=== PATIENT | male | born 1975 | race Hispanic/Latino ===

== ENCOUNTER 2018-09-11 10:11 | Inpatient (IN) | payer MEDICAID, OTHER ==
--- NOTE | 2018-09-11 10:19 | ED PDOC ---
Arrival/HPI - General Time Seen by Provider: 09/11/18 10:12 Historian: Patient - History of Present Illness Narrative History of Present Illness (Text): 09/11/18 10:16 42 y/o male, psy transfer from [facility] to [facility], alonso colon for admission to the psy floor. Pt. is here with no medical complaints. Pt. admits suicidal ideation with plan and there fore he needs psychiatric admission. Pt. has no nausea/vomiting/diarrhea/chest pain or shortness of breath, no other medical or psychological complaints. Past Medical History - Provider Review Nursing Documentation Reviewed: Yes Family/Social History - Physician Review Nursing Documentation Reviewed: Yes Family/Social History: Unknown Family HX Allergies/Home Meds Allergies/Adverse Reactions: Allergies No Known Allergies Allergy (Verified 09/11/18 10:20) Home Medications: Home Meds Medication Instructions Recorded Confirmed No Known Home Med 09/11/18 09/11/18 Review of Systems - Review of Systems Constitutional: absent: Fatigue, Fevers Eyes: absent: Vision Changes ENT: absent: Hearing Changes, Rhinorrhea Respiratory: absent: SOB, Cough Cardiovascular: absent: Chest Pain Gastrointestinal: absent: Abdominal Pain, Diarrhea, Nausea, Vomiting Neurological: absent: Headache, Dizziness Psychiatric: Suicidal Ideation. absent: Anxiety, Depression Physical Exam - Systems Exam Head: Present: Atraumatic, Normocephalic Pupils: Present: PERRL Extroacular Muscles: Present: EOMI Conjunctiva: Present: Normal Mouth: Present: Moist Mucous Membranes Neck: Present: Normal Range of Motion Respiratory/Chest: Present: Clear to Auscultation, Good Air Exchange. No: Respiratory Distress, Accessory Muscle Use Cardiovascular: Present: Regular Rate and Rhythm, Normal S1, S2. No: Murmurs Abdomen: No: Tenderness, Distention, Peritoneal Signs Back: Present: Normal Inspection Upper Extremity: Present: Normal Inspection. No: Cyanosis, Edema Lower Extremity: Present: Normal Inspection. No: Edema Neurological: Present: GCS=15, CN II-XII Intact, Speech Normal Skin: Present: Warm, Dry, Normal Color. No: Rashes Psychiatric: Present: Alert, Oriented x 3, Normal Insight, Normal Concentration, Suicidal Ideation. No: Homicidal Ideation, Intoxicated, Lethargic Medical Decision Making ED Course and Treatment: 09/11/18 10:17 -Pt. accepted by the ER doctor Dr. Flores from the previous shift and admission psychiatrist is Dr. Dona Pratt which she is aware. -Pt. is medically clear and stable for admission for psy at this point, please consult with medicine attending if medical consult is needed. 09/11/18 11:05 -Pt. has elevated BP, asymptomatic, will admit to psy, no emergent treatment, he would need low salt diet and weight loss as initial treatment. - PA / LEAD GAME DESIGNER / Resident Statement MD/DO has reviewed & agrees with the documentation as recorded. Disposition/Present on Arrival - Present on Arrival Any Indicators Present on Arrival: No History of DVT/PE: No History of Uncontrolled Diabetes: No Urinary Catheter: No History of Decub. Ulcer: No - Disposition Have Diagnosis and Disposition been Completed?: Yes Diagnosis: Suicidal ideation Disposition: HOSPITALIZED Disposition Time: 10:19 Patient Plan: Admission Condition: STABLE
[2018-09-11 11:10] VITALS: O2SAT 99
--- NOTE | 2018-09-11 14:07 | CP.PCM.CON ---
<Yann Salazar - Last Filed: 09/11/18 19:38> History of Present Illness - History of Present Illness History of Present Illness: Yann Salazar DO PGY1 - Medicine Consult Note Patient is a 42M w/ PMH EtOH abuse presenting from [facility] after suicidal ideation and EtOH intoxication. Patient was admitted to [facility] on 09/09 and transferred to [facility] on 09/11 for inpatient psych admission. Medicine was consulted for elevated blood pressure readings. Upon evaluation of the patient, he denies any prior medical history of HTN AMI or CVA. Denies any chest pain, blurry vision, sob, palpitations at this time. Has never been told he has had any high blood pressure in the past. He did report his last drink was on 09/09 and is mildly anxious at this time; denies any seizure or alcohol withdrawal in the past. Social: Drinks 2-3 [employer] every other day, 21 pack year smoker, remote hx cocaine use, no IVDA, Marijuana use 6mo ago PMH: Denies PSH: Denies ALL: NKDA HomeRx: Denies Fam Hx: Mom - alive healthy, father unknown Review of Systems - Review of Systems All systems: reviewed and no additional remarkable complaints except Review of Systems: as per HPI Past Patient History - Past Social History Smoking Status: Light Smoker < 10 Cigarettes Daily - CARDIAC Hx Cardiac Disorders: No - PULMONARY Hx Respiratory Disorders: No - NEUROLOGICAL Hx Neurological Disorder: No - HEENT Hx HEENT Problems: No - RENAL Hx Chronic Kidney Disease: No - ENDOCRINE/METABOLIC Hx Endocrine Disorders: No - HEMATOLOGICAL/ONCOLOGICAL Hx Blood Disorders: No - INTEGUMENTARY Hx Dermatological Problems: No - GASTROINTESTINAL Hx Gastrointestinal Disorders: No - GENITOURINARY/GYNECOLOGICAL Hx Genitourinary Disorders: No - PSYCHIATRIC Hx Anxiety: Yes Hx Substance Use: No - SURGICAL HISTORY Hx Surgeries: No Meds Allergies/Adverse Reactions: Allergies Allergy/AdvReac Type Severity Reaction Status Date / Time No Known Allergies Allergy Verified 09/11/18 18:03 - Medications Medications: Current Medications Lorazepam (Ativan) 2 mg PO Q6H PRN; Protocol PRN Reason: anxiety/agitation Lorazepam (Ativan) 2 mg IM Q6 PRN; Protocol PRN Reason: Agitation Mirtazapine (Remeron) 15 mg PO HS WILFRIDO Nicotine (Nicoderm Cq) 1 patch TD DAILY WILFRIDO Last Admin: 09/11/18 13:54 Dose: 1 patch Ziprasidone (Geodon Cap) 20 mg PO Q6H PRN; Protocol PRN Reason: psychosis/agitation Ziprasidone (Geodon Inj) 20 mg IM Q6H PRN; Protocol PRN Reason: severe agitaiton/psychosis Physical Exam - Constitutional Appears: Well, Non-toxic, No Acute Distress - Head Exam Head Exam: ATRAUMATIC, NORMOCEPHALIC - Eye Exam Eye Exam: EOMI, Normal appearance, PERRL - ENT Exam ENT Exam: Mucous Membranes Moist, Normal Exam - Respiratory Exam Respiratory Exam: Clear to Auscultation Bilateral, NORMAL BREATHING PATTERN - Cardiovascular Exam Cardiovascular Exam: RRR. absent: Systolic Murmur - GI/Abdominal Exam GI & Abdominal Exam: Soft. absent: Tenderness - Neurological Exam Neurological exam: Alert, Oriented x3 Additional comments: No tremor - Psychiatric Exam Psychiatric exam: Anxious - Skin Skin Exam: Dry, Intact, Normal Color, Warm Results - Vital Signs Recent Vital Signs: Last Vital Signs Temp 98.6 F 09/11/18 11:47 Pulse 82 09/11/18 12:45 Resp 17 09/11/18 11:47 BP 155/98 H 09/11/18 12:45 Pulse Ox 99 09/11/18 11:04 Assessment & Plan - Assessment and Plan (Free Text) Assessment: 42M PMH EtOH abuse admitted to inpatient psych 2/2 suicidal ideation; medicine service consulted for evaluation of elevated blood pressure Plan: Elevated Blood Pressure: Patient noted to be HTN 160s/100s upon presentation to ED; Reviewing his chart at outside facility prior to arrival patient BP 113-127/90s At time of evaluation his pressure was 137/88 Asymptomatic at time of presentation; EKG at outside facility is NSR; Lab work reviewed; patient had EtOH level >200 on 09/09 Given his BP fluctuance; it is likely that elevated readings are 2/2 Anxiety due to EtOH withdrawal He demonstrates no other signs of withdrawal other than mild anxiety at this time. He will need outpatient monitoring of his pressure to establish a formal diagnosis of hypertension It is recommended however he maintain a low fat/ low salt diet; and partake in exercise program given his BMI of 30 No further inpatient medical management or workup required at this time Thank you for this interesting consult, will sign off at this time, please reconsult as necessary Patient was seen examined and discussed w/ attending Dr. Leslie Salazar DO PGY1 Internal Medicine [employer] Sales Consultant - Date & Time Date: 09/11/18 Time: 19:46 <Shorty Nelson - Last Filed: 09/15/18 12:56> Meds - Medications Medications: Current Medications Acetaminophen (Tylenol 325mg Tab) 650 mg PO Q4 PRN PRN Reason: Pain, moderate (4-7) Al Hydrox/Mg Hydrox/Simethicone (Maalox Plus 30 Ml) 30 ml PO DAILY PRN PRN Reason: Upset Stomach Last Admin: 09/14/18 14:08 Dose: 30 ml Atorvastatin Calcium (Lipitor) 10 mg PO DIN WILFRIDO Last Admin: 09/14/18 17:39 Dose: 10 mg Gabapentin (Neurontin) 300 mg PO TID WILFRIDO; Protocol Last Admin: 09/15/18 08:10 Dose: 300 mg Lorazepam (Ativan) 2 mg PO Q6H PRN; Protocol PRN Reason: anxiety/agitation Last Admin: 09/15/18 08:10 Dose: 2 mg Lorazepam (Ativan) 2 mg IM Q6 PRN; Protocol PRN Reason: Agitation Magnesium Hydroxide (Milk Of Magnesia) 30 ml PO DAILY PRN PRN Reason: Constipation Mirtazapine (Remeron) 30 mg PO HS [facility] Last Admin: 09/14/18 21:09 Dose: 30 mg Nicotine (Nicoderm Cq) 1 patch TD DAILY WILFRIDO Last Admin: 09/15/18 08:10 Dose: 1 patch Pantoprazole Sodium (Protonix Ec Tab) 40 mg PO 0600 WILFRIDO Last Admin: 09/14/18 17:39 Dose: 40 mg Quetiapine Fumarate (Seroquel) 12.5 mg PO BID WILFRIDO; Protocol Quetiapine Fumarate (Seroquel) 25 mg PO HS WILFRIDO; Protocol Ziprasidone (Geodon Cap) 20 mg PO Q6H PRN; Protocol PRN Reason: psychosis/agitation Last Admin: 09/14/18 22:20 Dose: 20 mg Ziprasidone (Geodon Inj) 20 mg IM Q6H PRN; Protocol PRN Reason: severe agitaiton/psychosis Results - Vital Signs Recent Vital Signs: Last Vital Signs Temp 97.8 F 09/14/18 06:56 Pulse 74 09/15/18 07:00 Resp 18 09/15/18 07:00 BP 113/73 09/15/18 07:00 Pulse Ox 99 09/11/18 11:04 Attending/Attestation - Attestation I have personally seen and examined this patient.: Yes I have fully participated in the care of the patient.: Yes I have reviewed all pertinent clinical information: Yes Notes (Text): 09/15/18 12:53 Attending note; Patient seen and examined with resident in psychiatric floor. Patient is alert and awake. Patient denies any past medical history. Currently not on any medications. Admitted to psychiatric floor for suicidal ideation. Denies any fevers, chills. Denies any abdominal pain, nausea, vomiting. Denies any shortness of breath or urinary, bowel complaints. 1. Mildly elevated blood pressure; secondary to anxiety and alcohol withdrawal . Continue Ativan. No need for antihypertensive therapy now. 2. Chronic alcohol abuse; complete alcohol cessation is strongly advised. Information about AA meetings and rehab given. 3. Active smoking; smoking cessation is strongly advised. Currently on NicoDerm patch. 4. GI prophylaxis with Protonix. Patient is ambulating without any difficulty 5. Anxiety depression; continue medication per psychiatrist. Advised to follow-up with PMD of choice upon discharge. Patient agrees with the above recommendation. 09/15/18 12:56
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
--- NOTE | 2018-09-11 15:58 | PCM.BM ---
<Miles Pimentel - Last Filed: 09/11/18 15:55> Treatment Plan Problems - Problems identified on initial assessmt Hopelessness/Helplessness Date Initiated: 09/11/18 Time Initiated: 12:00 Assessment reference: NA Status: Active Priority: 1 Feelings of Worthlessness Date Initiated: 09/11/18 Time Initiated: 12:00 Assessment reference: NA Status: Active Priority: 2 Anxiety Related to Substance Abuse Date Initiated: 09/11/18 Time Initiated: 12:00 Assessment reference: NA Status: Active Priority: 3 Knowledge Deficit: Alcohol Use Date Initiated: 09/11/18 Time Initiated: 12:00 Assessment reference: NA Status: Active Priority: 4 Ineffective Coping Date Initiated: 09/11/18 Time Initiated: 12:00 Assessment reference: NA Status: Active Priority: 5 Treatment assets and liabiliti Patient Assests: cooperative, ADL independent, negotiates basic needs, cognitively intact, good interpersonal skills Patient Liabilities: live alone, financial problems, relationship conflicts, substance abuse - Milieu Protocol Maintain good personal hygiene: daily Encourage regular showers, daily Remind patient to perform daily oral care, every shift Assist patient to perform ADL's Maintain personal safety: every shift Educate patient to report safety concerns to staff, every shift Monitor environment for contraband/sharps Medication safety: Monitor for expected outcome, potential side effects: every shift, Assess barriers to learning: every shift, Assess readiness for medication education: every shift Milieu Narrative: Milieu/structure/supportive therapy SW consultation for discharge plan and social issues Med management Neurontin 300 mg 3 times a day for mood stabilization Remeron 15 mg at the nighttime for depression and insomnia As needed medication Medical consult for hypertension No need for one-to-one observation, patient contracted for safety Family involvement Follow up on labs Will monitor closely Pt was educated about risk/benefits and alternatives of medications, coping strategies (safety plan, suicide prevention), relapse prevention, importance of follow up with psychiatrist and therapist, stay away from drugs/alcohol/smoking Family Contact Family involvement: Family/SO is involved Family contact: Patient agrees to contact Discharge/Continuing Care - Education Needs Education Needs: Patient Medication, Patient Diagnosis/Disease Process, Patient Coping Skills, Patient Anger Management skills, Patient Placement options, Patient Community resources, Patient Activities of Daily Living, Patient Pain, Patient Nutrition, Patient Uses of Medical Equipment, Patient Health Practices/Safety, Patient Personal Hygiene/Grooming, Patient Aftercare Safety Plan - Discharge Discharge Criteria: Tolerates medication w/o severe side effects - Treatment Team Participation Patient/Family/SO Statement: Milieu/structure/supportive therapy SW consultation for discharge plan and social issues Med management Neurontin 300 mg 3 times a day for mood stabilization Remeron 15 mg at the nighttime for depression and insomnia As needed medication Medical consult for hypertension No need for one-to-one observation, patient contracted for safety Family involvement Follow up on labs Will monitor closely Pt was educated about risk/benefits and alternatives of medications, coping strategies (safety plan, suicide prevention), relapse prevention, importance of follow up with psychiatrist and therapist, stay away from drugs/alcohol/smoking <Neida Reaves - Last Filed: 09/13/18 08:38> Family Contact Family contact: Patient agrees to contact
[2018-09-11] MEDS ORDERED: Magnesium Hydroxide Susp 30 ml UD PO PRN (18:36)
[2018-09-11] MEDS: Alum-Mag Hydrox-Simethicone Susp (30 mL) PO PRN (18:45)
[2018-09-11 19:09] VITALS: BMI 30.1
--- NOTE | 2018-09-11 19:36 | CP.PCM.PN ---
Subjective - Date & Time of Evaluation Date of Evaluation: 09/11/18 Time of Evaluation: 13:00 - Subjective Subjective: Yann Salazar PGY1 - Medicine Consult Note Patient is a 42M w/ PMH EtOH abuse presenting from [facility] after suicidal ideation and EtOH intoxication. Patient was admitted to [facility] on 09/09 and transferred to [facility] on 09/11 for inpatient psych admission. Medicine was consulted for elevated blood pressure readings. Upon evaluation of the patient, he denies any prior medical history of HTN AMI or CVA. Denies any chest pain, blurry vision, sob, palpitations at this time. Has never been told he has had any high blood pressure in the past. He did report his last drink was on 09/09 and is mildly anxious at this time; denies any seizure or alcohol withdrawal in the past. Social: Drinks 2-3 4Lock[employer] every other day, 21 pack year smoker, remote hx cocaine use, no IVDA, Marijuana use 6mo ago PMH: Denies PSH: Denies ALL: NKDA HomeRx: Denies Fam Hx: Mom - alive healthy, father unknown Objective - Vital Signs/Intake and Output Vital Signs (last 24 hours): Temp Pulse Resp BP Pulse Ox 98.6 F 74 17 124/84 99 09/11/18 11:47 09/11/18 16:19 09/11/18 11:47 09/11/18 16:19 09/11/18 11:04 - Medications Medications: Current Medications Acetaminophen (Tylenol 325mg Tab) 650 mg PO Q4 PRN PRN Reason: Pain, moderate (4-7) Al Hydrox/Mg Hydrox/Simethicone (Maalox Plus 30 Ml) 30 ml PO DAILY PRN PRN Reason: Upset Stomach Last Admin: 09/11/18 18:45 Dose: 30 ml Gabapentin (Neurontin) 300 mg PO TID WILFRIDO; Protocol Last Admin: 09/11/18 17:25 Dose: 300 mg Lorazepam (Ativan) 2 mg PO Q6H PRN; Protocol PRN Reason: anxiety/agitation Last Admin: 09/11/18 17:25 Dose: 2 mg Lorazepam (Ativan) 2 mg IM Q6 PRN; Protocol PRN Reason: Agitation Magnesium Hydroxide (Milk Of Magnesia) 30 ml PO DAILY PRN PRN Reason: Constipation Mirtazapine (Remeron) 15 mg PO HS WILFRIDO Nicotine (Nicoderm Cq) 1 patch TD DAILY WILFRIDO Last Admin: 09/11/18 13:54 Dose: 1 patch Ziprasidone (Geodon Cap) 20 mg PO Q6H PRN; Protocol PRN Reason: psychosis/agitation Ziprasidone (Geodon Inj) 20 mg IM Q6H PRN; Protocol PRN Reason: severe agitaiton/psychosis
[2018-09-12 07:57] LABS: GLUCOSE,FASTING 94 mg/dL (65-110); HDL CHOLESTEROL 44 mg/dL (29-60)
[2018-09-12 08:08] LABS: LDL CHOLESTEROL 195 mg/dL (0-129)
--- NOTE | 2018-09-12 10:57 | PCM.PYCHPN ---
Psychiatric Progress Note - Psychiatric Progress Note Patient seen today, length of contact: 30min Patient Chief Complaint: "I am okay, I slept a little better.." Problems Identified/Issues Discussed: Symptoms, previous history, current medications, risk/benefits/alternatives of the medications, suicide prevention. Medical Problems: History of hypertension Please see medical team notes for more detailed information Diagnostic Results: Lab Results 09/12/18 07:30: TSH 3rd Generation 3.04 09/12/18 07:30: Fasting Glucose 94, Triglycerides 179 H, Cholesterol 263 H, LDL Cholesterol Direct 195 H, HDL Cholesterol 44 Vital Signs Temp Pulse Resp BP Pulse Ox 09/12/18 07:01 97.5 F L 61 20 121/71 09/11/18 16:19 74 124/84 09/11/18 12:45 82 155/98 H 09/11/18 11:47 98.6 F 80 17 161/102 H 09/11/18 11:32 124/84 09/11/18 11:04 85 18 158/99 H 99 09/11/18 10:20 98.7 F 89 18 160/105 H 98 DSM 5 Symptoms Update: Shortly patient is a 42-year-old male, not known previous psychiatric history, history of polysubstance abuse and dependence, active alcohol use, patient was transferred from [facility] after patient's mother called 911 because patient was threatening to kill himself, as per report from [facility], pt was holding a knife next to his wrist. Patient obviously requires further evaluation stabilization and medication titration. Patient was seen and examined today, patient appears to be depressed, withdrawn, flat affect. Patient reported that he slept well, denied any side effects from the medications. As per staff patient was anxious and disorganized. The same time there is no agitation or aggression. as per report from [facility], pt's mother expressed concerns that pt was calling her on multiple occasions using different voices, saying "hello Mother", mother was asking about "multiple personalities". So far patient tolerates medications well, no side effects observed or reported, aims 0, no EPS. DSM 5 Diagnosis: Rule out major depressive disorder, severe (r/o psychotic features) Rule out adjustment disorder with depressed and anxious mood Alcohol use disorder History of polysubstance abuse and dependence Medication Change: No (Started 09/11/2018) Medical Record Reviewed: Yes Consults ordered or reviewed: Medical consult appreciated, discussed with senior medical director. Mental Status Examination - Cognitive Function Orientation: Person, Place, Situation Memory: Impaired Attention: Poor Concentration: Poor Association: Loose - Mood Mood: Depressed, Anxious - Affect Affect: Other (Patient was smiling and appropriately) - Formal Thought Process Formal Thought Process: No Impairment Psychotic Thoughts and Behaviors: Patient denied hearing voices, denies seeing things, but as per staff patient presented to be disorganized. - Suicidal Ideation Suicidal Ideation: No - Homicidal Ideation Homicidal Ideation: No Goal/Treatment Plan - Goal/Treatment Plan Need for Continued Stay: Remain at risks for inpatient hospitalization, Severe depression anxiety, Discharge may exacerbated symptoms, Severe functional impairment Progress Toward Problem(s) and Goals/Treatment Plan: Milieu/structure/supportive therapy SW consultation for discharge plan and social issues Med management Neurontin 300 mg 3 times a day for mood stabilization Remeron 15 mg at the nighttime for depression and insomnia As needed medication, pt was asking for ativan Medical consult for hypertension appreciated Family involvement Follow up on labs Will monitor closely Pt was educated about risk/benefits and alternatives of medications, coping str ategies (safety plan, suicide prevention), relapse prevention, importance of follow up with psychiatrist and therapist, stay away from drugs/alcohol/smoking Estimated Date of D/C: 09/18/18
[2018-09-12] MEDS: Alum-Mag Hydrox-Simethicone Susp (30 mL) PO PRN ×2 (12:53→19:44)
--- NOTE | 2018-09-13 08:48 | CP.PCM.PCO ---
Physician Communication Note - Physician Communication Note Physician Communication Note: pt with hld, refused low fat diet, started low dose lipitor 10 mg DIN.
--- NOTE | 2018-09-13 13:53 | PCM.PYCHPN ---
Psychiatric Progress Note - Psychiatric Progress Note Patient seen today, length of contact: 30min Patient Chief Complaint: "I had a restless night.." Problems Identified/Issues Discussed: Symptoms, previous history, current medications, risk/benefits/alternatives of the medications, suicide prevention. Medical Problems: History of hypertension Please see medical team notes for more detailed information Diagnostic Results: Lab Results 09/12/18 07:30: TSH 3rd Generation 3.04 09/12/18 07:30: Fasting Glucose 94, Triglycerides 179 H, Cholesterol 263 H, LDL Cholesterol Direct 195 H, HDL Cholesterol 44 Vital Signs Temp Pulse Resp BP Pulse Ox 09/12/18 07:01 97.5 F L 61 20 121/71 09/11/18 16:19 74 124/84 09/11/18 12:45 82 155/98 H 09/11/18 11:47 98.6 F 80 17 161/102 H 09/11/18 11:32 124/84 09/11/18 11:04 85 18 158/99 H 99 09/11/18 10:20 98.7 F 89 18 160/105 H 98 DSM 5 Symptoms Update: Shortly patient is a 42-year-old male, not known previous psychiatric history, history of polysubstance abuse and dependence, active alcohol use, patient was transferred from [facility] after patient's mother called 911 because patient was threatening to kill himself, as per report from [facility], pt was holding a knife next to his wrist. Patient obviously requires further evaluation stabilization and medication titration. Patient was seen and examined today next to the nursing station, patient appears to be depressed, withdrawn, flat affect. Patient reported that he had a restless night, denied any side effects from the medications. pt presented to be irritable, annoyed, sarcastic. As per staff patient was anxious and disorganized. The same time there is no agitation or aggression. as per report from [facility], pt's mother expressed concerns that pt was calling her on multiple occasions using different voices, saying "hello Mother", mother was asking about "multiple personalities". So far patient tolerates medications well, no side effects observed or reported, aims 0, no EPS. DSM 5 Diagnosis: Rule out major depressive disorder, severe (r/o psychotic features) Rule out adjustment disorder with depressed and anxious mood Alcohol use disorder History of polysubstance abuse and dependence Medication Change: Yes (remeron increased) Medical Record Reviewed: Yes Consults ordered or reviewed: Medical consult appreciated, discussed with director global medical affairs. Mental Status Examination - Cognitive Function Orientation: Person, Place, Situation Memory: Impaired Attention: Poor Concentration: Poor Association: Loose - Mood Mood: Depressed, Anxious - Affect Affect: Other (Patient was smiling and appropriately) - Formal Thought Process Formal Thought Process: No Impairment Psychotic Thoughts and Behaviors: Patient denied hearing voices, denies seeing things, but as per staff patient presented to be disorganized. - Suicidal Ideation Suicidal Ideation: No - Homicidal Ideation Homicidal Ideation: No Goal/Treatment Plan - Goal/Treatment Plan Need for Continued Stay: Remain at risks for inpatient hospitalization, Severe depression anxiety, Discharge may exacerbated symptoms, Severe functional impairment Progress Toward Problem(s) and Goals/Treatment Plan: Milieu/structure/supportive therapy SW consultation for discharge plan and social issues Med management Neurontin 300 mg 3 times a day for mood stabilization Remeron 30 mg at the nighttime for depression and insomnia As needed medication, pt was asking for ativan Medical consult for hypertension appreciated Family involvement Follow up on labs Will monitor closely Pt was educated about risk/benefits and alternatives of medications, coping strategies (safety plan, suicide prevention), relapse prevention, importance of follow up with psychiatrist and therapist, stay away from drugs/alcohol/smoking Estimated Date of D/C: 09/18/18
[2018-09-13] MEDS: Alum-Mag Hydrox-Simethicone Susp (30 mL) PO PRN ×2 (14:42→21:41)
--- NOTE | 2018-09-14 08:46 | PCM.PYCHPN ---
Psychiatric Progress Note - Psychiatric Progress Note Patient seen today, length of contact: 30min Problems Identified/Issues Discussed: I reviewed assessment and recent notes. I met with patient in the dayroom. Grooming is a little unkempt, otherwise he presents as alert and oriented x3. Superficially cooperative and polite with questioning. Affect is flat and constricted. Patient indicates that he generally feels "all right" and that he is "still struggling with sleep". 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 He denies new pain, discomfort or side effects. Thought process is coherent without evidence of perceptual disturbance. Staff notes indicate that he has been visible on the unit and participating in groups. Anxious at times. There were no major behavioral issues overnight. Diagnostic Results: Rule out major depressive disorder, severe (r/o psychotic features) Rule out adjustment disorder with depressed and anxious mood Alcohol use disorder History of polysubstance abuse and dependence Medication Change: No ( ) Medical Record Reviewed: Yes Mental Status Examination - Cognitive Function Orientation: Person, Place, Situation Memory: Impaired Attention: WNL Concentration: Poor Association: Loose - Mood Mood: Depressed, Anxious - Affect Affect: Flat - Speech Speech: Appropriate - Formal Thought Process Formal Thought Process: No Impairment - Suicidal Ideation Suicidal Ideation: No - Homicidal Ideation Homicidal Ideation: No Goal/Treatment Plan - Goal/Treatment Plan Need for Continued Stay: Remain at risks for inpatient hospitalization, Severe depression anxiety, Discharge may exacerbated symptoms, Severe functional impairment Progress Toward Problem(s) and Goals/Treatment Plan: * c/w current tx and plan * No new weekend lab results noted thus far * Recent vitals reviewed and noted below: Selected Entries 09/13/18 09/13/18 07:05 15:53 Temperature 97.9 F Pulse Rate 71 98 H Respiratory 20 Rate Blood Pressure 126/78 151/97 H Estimated Date of D/C: 09/18/18
[2018-09-14] MEDS: Alum-Mag Hydrox-Simethicone Susp (30 mL) PO PRN (14:08)
[2018-09-14] MEDS: Pantoprazole 40 mg EC Tab PO SCH (17:39)
--- NOTE | 2018-09-15 08:32 | PCM.PYCHPN ---
Psychiatric Progress Note - Psychiatric Progress Note Patient seen today, length of contact: 30min Problems Identified/Issues Discussed: I reviewed recent notes and met with patient at bedside. Grooming is a little unkempt, otherwise he presents as alert and oriented x3. Superficially cooperat rupinder and polite with questioning. Affect is labile and a little anxious. Patient indicates that he generally feels "all right" and that he is "still struggling with sleep, it's up and down". 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 He denies new pain, discomfort or side effects. Thought process is coherent without evidence of perceptual disturbance. Staff notes indicate that he has been visible on the unit and participating in groups. Anxious and labile with internal agitation at times. There were no major behavioral issues over the holiday weekend thus far. Diagnostic Results: Rule out major depressive disorder, severe (r/o psychotic features) Rule out adjustment disorder with depressed and anxious mood Alcohol use disorder History of polysubstance abuse and dependence Medication Change: Yes (started seroquel 12.5 BID and 25 HS) Medical Record Reviewed: Yes Mental Status Examination - Cognitive Function Orientation: Person, Place, Situation Memory: Impaired Attention: WNL Concentration: Poor Association: Loose - Mood Mood: Depressed, Anxious - Affect Affect: Flat - Speech Speech: Appropriate - Formal Thought Process Formal Thought Process: No Impairment - Suicidal Ideation Suicidal Ideation: No - Homicidal Ideation Homicidal Ideation: No Goal/Treatment Plan - Goal/Treatment Plan Need for Continued Stay: Remain at risks for inpatient hospitalization, Severe depression anxiety, Discharge may exacerbated symptoms, Severe functional impairment Progress Toward Problem(s) and Goals/Treatment Plan: * c/w current tx and plan * Started seroquel 12.5 mg po BID and 25 HS on 09/15/18 for lability, racing thoughts and edginess on the unit * No new weekend lab results noted thus far * Recent vitals reviewed and noted below: Selected Entries 09/14/18 09/14/18 06:56 16:00 Temperature 97.8 F Pulse Rate 82 93 H Respiratory 20 Rate Blood Pressure 119/84 126/78 Estimated Date of D/C: 09/18/18
[2018-09-15] MEDS: Pantoprazole 40 mg EC Tab PO SCH (16:21)
[2018-09-16] MEDS: Pantoprazole 40 mg EC Tab PO SCH (06:50)
--- NOTE | 2018-09-16 08:30 | PCM.PYCHPN ---
Psychiatric Progress Note - Psychiatric Progress Note Patient seen today, length of contact: 30min Problems Identified/Issues Discussed: I reviewed recent notes and met with patient in the dayroom. Grooming is fair and he continues to present as alert and oriented x3. Superficially cooperative and polite with questioning. Affect remains labile, anxious with decreased reactivity. Patient indicates that he generally feels "all right", he is still depressed and "still struggling with sleep, it's up and down". He admits to racing thoughts and requests increase in night-time Seroquel dose. He denies new pain, discomfort or side effects. Thought process is coherent without evidence of perceptual disturbance. Staff notes indicate that he has been visible on the unit and participating in groups. Anxious, upset and sad with internal agitation at times. There were no major behavioral issues over the iday weekend thus far. Diagnostic Results: Rule out major depressive disorder, severe (r/o psychotic features) Rule out adjustment disorder with depressed and anxious mood Alcohol use disorder History of polysubstance abuse and dependence Medication Change: Yes (increased seroquel to 12.5 BID and 50 HS) Medical Record Reviewed: Yes Mental Status Examination - Cognitive Function Orientation: Person, Place, Situation Memory: Impaired Attention: WNL Concentration: Poor Association: Loose - Mood Mood: Depressed, Anxious - Affect Affect: Flat (decreased reactivity) - Speech Speech: Appropriate - Formal Thought Process Formal Thought Process: No Impairment - Suicidal Ideation Suicidal Ideation: No - Homicidal Ideation Homicidal Ideation: No Goal/Treatment Plan - Goal/Treatment Plan Need for Continued Stay: Remain at risks for inpatient hospitalization, Severe depression anxiety, Discharge may exacerbated symptoms, Severe functional impairment Progress Toward Problem(s) and Goals/Treatment Plan: * c/w current tx and plan * Started seroquel 12.5 mg po BID and 25 HS on 09/15/18 for lability, racing thoughts and edginess on the unit. This was increased to 12.5/12.5/50 on 09/16 to help with night-time racing thoughts and restlessness. * No new weekend lab results noted thus far * Recent vitals reviewed and noted below: 09/14/18 09/14/18 09/15/18 06:56 16:00 07:00 Temperature 97.8 F Pulse Rate 82 Respiratory 20 18 Rate Blood Pressure 119/84 126/78 113/73 09/15/18 16:00 Temperature Pulse Rate 101 H Respiratory Rate Blood Pressure 127/78 Estimated Date of D/C: 09/18/18
[2018-09-17] MEDS: Pantoprazole 40 mg EC Tab PO SCH (06:40)
[2018-09-17 07:27] VITALS: BP 112/68; PULSE 70; RESP 20; TEMP 97.9
--- NOTE | 2018-09-17 16:09 | PCM.PYCHDC ---
Mental Status Examination - Mental Status Examination Orientation: Person, Place, Situation, Time Memory: Intact Mood: Neutral Affect: Broad (Mood congruent) Speech: Appropriate Attention: WNL Concentration: WNL Association: WNL Fund of Knowledge: WNL Formal Thought Process: No Impairment Description of patient's judgement and insight: Pt has improved insight into mental and medical illness, but limited insight into his alcohol abuse, pt was compliant with medications and unit rules and regulations, pt was attending group therapy sessions, was calm, cooperative, socially appropriate, no behavioral incidents, no agitation, no aggression. Psychotic Thoughts and Behaviors: Patient denied hearing voices, denies seeing things, patient does not presented to be psychotic. Suicidal Ideation: No Current Homicidal Ideation?: No Plan: pt adamantly denied thoughts of harming self or others denied intent or plan. Discharge Plan - Discharge Note Reason for Hospitalization: Depression, possible suicidal ideation. Psychiatric History (includes Medical, Family, Personal Hx): As per HPI Laboratory Data: Lab Results 09/12/18 07:30: RPR Nonreactive 09/12/18 07:30: TSH 3rd Generation 3.04 09/12/18 07:30: Fasting Glucose 94, Triglycerides 179 H, Cholesterol 263 H, LDL Cholesterol Direct 195 H, HDL Cholesterol 44 Vital Signs Temp Pulse Resp BP Pulse Ox 09/17/18 07:26 97.9 F 70 20 112/68 09/16/18 16:02 92 H 124/76 09/16/18 07:00 97.4 F L 73 18 119/81 09/15/18 16:00 101 H 127/78 09/15/18 07:00 74 18 113/73 09/14/18 16:00 93 H 126/78 09/14/18 06:56 97.8 F 82 20 119/84 09/13/18 15:53 98 H 151/97 H 09/13/18 07:05 97.9 F 71 20 126/78 09/12/18 15:44 82 113/67 09/12/18 07:01 97.5 F L 61 20 121/71 09/11/18 16:19 74 124/84 09/11/18 12:45 82 155/98 H 09/11/18 11:47 98.6 F 80 17 161/102 H 09/11/18 11:32 124/84 09/11/18 11:04 85 18 158/99 H 99 09/11/18 10:20 98.7 F 89 18 160/105 H 98 Consultations:: List each consultation separately and include: 1. Reason for request. 2. Findings. 3. Follow-up Consultations: Medical consult appreciated, discussed with medical assistant prn. Please see notes for more detailed information. Summary of Hospital Course include:: 1. Description of specific treatment plan utilized for patients during their course of treatmen. 2. Summarize the time- course for resolution of acute symptoms and/or regressed behaviors. 3. Describe issues identified and worked on during hospitalization. 4. Describe medication utilized. 5. Describe medical problems identified and treated. 6. Reassessment of suicide risk Summary of Hospital Course: Shortly patient is a 42-year-old male, not known previous psychiatric history, history of polysubstance abuse and dependence, active alcohol use, patient was transferred from [facility] after patient's mother called 911 because patient was threatening to kill himself, as per report from [facility], pt was holding a knife next to his wrist. Patient obviously requires further evaluation stabilization and medication titration. Please see admission note for more detailed information. Patient was stabilized and the following medication: Lipitor 10 mg at the nighttime Remeron 30 mg at the nighttime for depression and insomnia NicoDerm 21 mg daily Seroquel 50 mg at the nighttime for mood stabilization patient tolerated medications well No side effects observed or reported, aims 0, no EPS. Patient requested to be discharged today, patient mother visited patient today, patient mother reported the patient presented much better, patient mother is willing to accept patient, patient mother will be assisting patient to obtain services. Patient does not want to be transferred to inpatient rehab. As per collateral information from staff, over the weekend patient was compliant with the medications, was attending groups, no aggression, no agitation, patient is pleasant and cooperative. Patient reached maximum effect from this acute psychiatric admission, patient deemed ready for discharge. At the time of the discharge patient was considered to pose no imminent danger to self or others, will be following up at dual diagnosis program, information about follow up appointment, time and address provided to the pt, (see SW note for more detailed information). It is a patient responsibility to follow up with outpatient clinic, PMD as well as specialists In case patient will need to obtain results of studies pending at discharge, patient was provided with contact information of Psychiatric Inpatient unit [phone] as well as Medical Record Department [phone], as well as [facility] [phone]. Nicotine patch was provided Naltrexone treatment offered, but pt refused counseling about smoking and alcohol cessation provided AA meetings as well as smoking cessation treatment program information was provided by the pt was provided with prescriptions see medication reconciliation form Pt was educated about safety plan in case of worsening of symptoms or in case of suicidal or homicidal ideation call 911 or go to the nearest ER, also was educated to take meds as prescribed and stay away from drugs, pt verbalized understanding. Vital Signs Temp Pulse Resp BP Pulse Ox 09/11/18 12:45 82 155/98 H 09/11/18 11:47 98.6 F 80 17 161/102 H 09/11/18 11:32 124/84 09/11/18 11:04 85 18 158/99 H 99 09/11/18 10:20 98.7 F 89 18 160/105 H 98 Chest x-ray, no acute pulmonary disease 09/10/2018 EKG normal sinus rhythm September 10, 2018 - Diagnosis (1) MDD (major depressive disorder) Status: Chronic Priority: High (2) Alcohol use disorder Status: Chronic Priority: High - Final Diagnosis (DSM 5) Condition upon Discharge: STABLE Disposition: HOME/ ROUTINE Follow-up Treatment Plan: At the time of the discharge patient was considered to pose no imminent danger to self or others, will be following up at dual diagnosis program, information about follow up appointment, time and address provided to the pt, (see note for more detailed information). It is a patient responsibility to follow up with outpatient clinic, PMD as well as specialists In case patient will need to obtain results of studies pending at discharge, patient was provided with contact information of Psychiatric Inpatient unit [phone] as well as Medical Record Department [phone], as well as [facility] [phone]. Nicotine patch was provided Naltrexone treatment offered, but pt refused counseling about smoking and alcohol cessation provided AA meetings as well as smoking cessation treatment program information was provided by the pt was provided with prescriptions see medication reconciliation form Pt was educated about safety plan in case of worsening of symptoms or in case of suicidal or homicidal ideation call 911 or go to the nearest ER, also was educated to take meds as prescribed and stay away from drugs, pt verbalized understanding. Prescriptions/Medication Reconciliation: Atorvastatin [Lipitor] 10 mg PO DIN #7 tab Mirtazapine [Remeron] 30 mg PO HS #14 tab Nicotine 21 mg/24 hr [Nicoderm Cq] 1 patch TD DAILY #14 patch Pantoprazole [Protonix EC Tab] 40 mg PO 0600 #7 ect Quetiapine Fumarate [Seroquel] 50 mg PO HS #14 tablet - Tobacco Cessation Tobacco Use Status for the last 30 days: Heavy User(>=5 cigs &/or cigars/pipes daily) Tobacco Use Treatment Practical Counseling Provided: Yes Tobacco Use Treatment FDA-Approved Cessation Medication Provided: Yes Type of Medication Provided: Nicoderm CQ Smoking Cessation Prescription was given: Yes - Alcohol or Substance Abuse Does the patient have an Alcohol or Substance Abuse Disorder: Yes A prescription for an FDA-approved medication for alcohol and drug dependence was given to the patient at discharge: No If no,reason for not providing: Patient refused - Antipsychotic Medications Pt discharged on 2 or more routine antipsychotic medications: Yes
== END 2018-09-17 14:48 | disposition home or self-care (01) | DRG 754 ==
LOC: ED 10:11 → ERH 10:23 → PSYC 11:48
PROVIDERS: ADMIT Psychiatry & Neurology Psychiatry; ATTEND Psychiatry & Neurology Psychiatry
PROC: GZ3ZZZZ Medication Management (ICD-10-PCS; principal; 2018-09-13)
DX: F32.9 Major depressive disorder, single episode, unspecified (principal); R45.851 Suicidal ideations; F10.239 Alcohol dependence with withdrawal, unspecified; F41.8 Other specified anxiety disorders; I10 Essential (primary) hypertension; F17.210 Nicotine dependence, cigarettes, uncomplicated; G47.00 Insomnia, unspecified; Z62.810 Personal history of physical and sexual abuse in childhood